=== PATIENT | male | born 1970 | race Caucasian/White ===

== ENCOUNTER 2017-02-16 16:30 | Emergency (ER) | payer OTHER ==
[2017-02-16] MEDS ORDERED: KEFLEX500 MG PO (20:08)
[2017-02-16] MEDS ORDERED: PERCOCET 5/325M1 TAB PO (20:08)
[2017-02-16 20:50] VITALS: BP 152/77
== END 2017-02-16 20:49 | disposition home or self-care (01) | DRG 563 ==
LOC: ED 16:30
PROC: 2W3KX1Z Immobilization of Left Finger using Splint (ICD-10-PCS; principal; 2017-02-16)
DX: S62.522A Displaced fracture of distal phalanx of left thumb, initial encounter for closed fracture (principal); W31.89XA Contact with other specified machinery, initial encounter; Y93.89 Activity, other specified; Y92.008 Other place in unspecified non-institutional (private) residence as the place of occurrence of the external cause